=== PATIENT | female | born 1955 | race Caucasian/White ===

== ENCOUNTER 2019-08-21 20:08 | Inpatient (IN) | payer BC ==
[~2019-08-21] VITALS: Ht 167.6 cm; Wt 84.6 kg
[2019-08-21 20:15] VITALS: BP_SYST 123
--- NOTE | 2019-08-21 20:34 | NUR ---
Patient to ER bed 5 to gown for evaluation. Side rails up. Report given to ANTONY TODD.
--- NOTE | 2019-08-21 20:55 | NUR ---
DR KEMP IN TO ASSESS. PT CALM AND COOPERATIVE
[2019-08-21] MEDS ORDERED: NACL 0.9% 1,000 ML IV ONE (21:00)
[2019-08-21] MEDS ORDERED: MORPHINE 2 MG/ML INJ. SYRINGE IVP ONE (21:00)
[2019-08-21] MEDS ORDERED: ONDANSETRON HCL 4 MG/2 ML VIAL IVP ONE (21:00)
[2019-08-21 21:11] LABS: BASOPHILS # (AUTO) 0.1 K/uL (0.0-0.2); BASOPHILS % (AUTO) 0.6 % (0.0-2.0); EOSINOPHILS # (AUTO) 0.1 K/uL (0.0-0.4); EOSINOPHILS % (AUTO) 0.6 % (0.0-4.0); HEMATOCRIT 44.3 % (36-48); HEMOGLOBIN 14.7 g/dL (12.0-16.0); LYMPHOCYTES # (AUTO) 1.3 K/uL (1.0-5.5); LYMPHOCYTES % (AUTO) 9.3 % (20.5-51.5); MEAN CORPUSCULAR HEMOGLOBIN 29 pg (27-31); MEAN CORPUSCULAR HGB CONC 33 % (32-36); MEAN CORPUSCULAR VOLUME 87 fL (79.0-98.0); MONOCYTES # (AUTO) 0.5 K/uL (0.0-1.0); MONOCYTES % (AUTO) 3.9 % (1.7-9.3); NEUTROPHILS # (AUTO) 11.9 K/uL (1.8-7.7); NEUTROPHILS % (AUTO) 85.6 % (40.0-70.0); PLATELET COUNT (AUTO) 387 K/uL (130-430); RED BLOOD CELL COUNT(AUTO) 5.09 MIL/uL (4.2-6.2); RED CELL DISTRIBUTION WIDTH 14.7 % (9.0-15.0); WHITE BLOOD COUNT (AUTO) 13.9 K/uL (4.8-10.8)
[2019-08-21 21:15] LABS: CALCIUM 9.2 mg/dL (8.4-11.0); CREATININE 1.11 mg/dL (0.55-1.30); POTASSIUM 4.4 mmol/L (3.5-5.1)
--- NOTE | 2019-08-21 21:15 | NUR ---
ALERT, CALM, RESP UNLABORED, SKIN WARM AND DRY. COMMUNICATES CLEARLY. HERE FOR 2 HOURS OF SHARP CONSTANT RUQ ABD PAIN/DENIES N,V,D. SUDDEN ONSET. DENIES CP/SOB,
[2019-08-21 21:20] LABS: TOTAL BILIRUBIN 0.3 mg/dL (0.0-1.0)
--- NOTE | 2019-08-21 21:30 | NUR ---
EXPRESSED SOME RELIEF WITH MEDICATION, RESP UNLABORED, NAD.
[2019-08-21] MEDS ORDERED: fentaNYL CITRATE/PF 100 MCG/2 ML AMP IVP ONE (22:15)
--- NOTE | 2019-08-21 22:24 | NUR ---
ULTRASOUND IN PROGRESS
--- NOTE | 2019-08-21 22:39 | NUR ---
UP AMBULATING STEADY, NO DYSPNEA
--- NOTE | 2019-08-22 00:05 | NUR ---
Pt is resting comfortably in bed, no acute distress noted at this time. Will continue to monitor.
--- NOTE | 2019-08-22 00:14 | NUR ---
Patient transported to radiology via gurney, accompanied by rad staff.
--- NOTE | 2019-08-22 00:21 | NUR ---
Pt returned in stable condition.
--- NOTE | 2019-08-22 00:24 | NUR ---
Pt C/O of increasing pain after returning from radiology. MD notified.
[2019-08-22] MEDS ORDERED: KETOROLAC TROMETHAMINE 30 MG VIAL IVP ONE (00:30)
[2019-08-22] MEDS ORDERED: MORPHINE 2 MG/ML INJ. SYRINGE IVP ONE ×2 (01:00→02:30)
[2019-08-22] MEDS ORDERED: [UNRECOGNIZED DRUG - OTHER] IV (01:26)
[2019-08-22] MEDS ORDERED: METF750T PO (01:26)
[2019-08-22] MEDS ORDERED: PREG75CA PO (01:26)
[2019-08-22] MEDS ORDERED: [UNRECOGNIZED DRUG - OTHER] (01:26)
[2019-08-22] MEDS ORDERED: ROSU20TA2 PO (01:26)
[2019-08-22] MEDS ORDERED: TOPIRAMATE (01:26)
[2019-08-22] MEDS ORDERED: ONDANSETRON HCL 4 MG/2 ML VIAL IVP PRN (01:30)
[2019-08-22] MEDS ORDERED: MORPHINE 2 MG/ML INJ. SYRINGE IVP PRN (01:30)
[2019-08-22] MEDS: NACL 0.9% 1,000 ML IV SCH ×3 (01:30→16:27)
--- NOTE | 2019-08-22 01:33 | NUR ---
Medication reconciliation completed with information provided by patient. Any prior medication reconciliation on file was reviewed and corrected.
--- NOTE | 2019-08-22 02:00 | NUR ---
Patient will be admitted to care of Dr. Overton. Admitted to Med Surg unit. Will go to room 102B. Belongings list completed. Complete and up to date summary report printed. SBAR report to be given at bedside with opportunity for questions.
--- NOTE | 2019-08-22 02:40 | NUR ---
Has been given 2mg of Morphine prior to transfer to the floor
--- NOTE | 2019-08-22 02:45 | NUR ---
ADMISSION NOTE Received patient from ER via french, received report from PEREZ QUEVEDO. Patient admitted with diagnosis of RENAL COLIC. Patient oriented to hospital routine, call light, toileting and safety-patient verbalized understanding.
[2019-08-22 02:47] VITALS: BP_SYST 150
--- NOTE | 2019-08-22 02:49 | NUR ---
[facility]. Will continue to monitor.
--- NOTE | 2019-08-22 02:51 | NUR ---
Nephro Consultation Paged REASON FOR CONSULTATION: Renal Colic WAS CONSULT CALLED? Yes PERSON WHO WAS NOTIFIED: Germaine CONSULTING PHYSICIAN: Dr Mesa; John Dodd is on-call. [employer] SPECIALTY: Nephrology [employer] PHONE NUMBER: REQUESTING PHYSICIAN: Dr Overton
[2019-08-22] MEDS ORDERED: TOP25 PO (03:08)
[2019-08-22] MEDS ORDERED: MILN100T PO (03:08)
--- NOTE | 2019-08-22 03:15 | NUR ---
ADMISSION PHYSICAL ASSESSMENT NOTES; took over care from admitting nurse Drew. pt. awake, alert and oriented. instructed on use of call light for help and bed. on room air, still noted pain on her flank and abdomen. IV site on rt. antecubital, will start IVF. moves all extremities. no edema. kept NPO for now as ordered. no nausea nor vomiting.
[2019-08-22] MEDS: MORPHINE 4 MG/ML INJ. SYRINGE IVP PRN ×2 (05:06→09:47)
--- NOTE | 2019-08-22 05:10 | NUR ---
NOTES: pt. remains awake. medicated with IV Morphine for c/o rt. sided abdominal/flank pain. repositioned self. kept NPO. IVF continuous. call light within reach.
--- NOTE | 2019-08-22 06:25 | NUR ---
CLOSING NOTES; pt. still asleep, noted relief from pain. IVF continuous. kept NPO. urollogy consult with Dr. Rudi Mesa this am. call light within reach. for further care and assistance.
--- NOTE | 2019-08-22 07:15 | NUR ---
OPENING NOTES PT AWAKE, ALERT, AND ORIENTED. NONLABORED BREATHING NOTED ON ROOM AIR, O2 AT 96%. PT DENIES PAIN AND SOB AT THIS TIME. IV LINE INTACT AND PATENT, NO SIGNS OF INFILTRATION NOTED. NO ACUTE DISTRESS NOTED. BED LOCKED AND IN LOWEST POSITION. ALL NEEDS MET. CALL LIGHT IN REACH. FALL AND ASPIRATION PRECAUTIONS IN PLACE. CONTINUE TO MONITOR.
[2019-08-22 08:00] VITALS: BP_SYST 128
[2019-08-22] MEDS ORDERED: cefTRIAXone 1 GM VIAL IM SCH (09:00)
[2019-08-22] MEDS ORDERED: cefTRIAXone 1 GM VIAL IV SCH (09:00)
[2019-08-22] MEDS: CEFTRIAXONE SOD 1 GM/ D5W 50 ML IV SCH ×2 (09:45)
--- NOTE | 2019-08-22 09:50 | NUR ---
PT C/O OF FLANK PAIN, ADMINISTERED PAIN MEDS ORDERED. WILL MONITOR.
[2019-08-22] MEDS ORDERED: DEXTROSE 50% JECT 50 ML DISP.SYRIN IVP PRN (10:15)
[2019-08-22 11:30] LABS: INR 0.9 (0.8-1.2); PROTHROMBIN TIME 9.5 SECS (9.5-12.5)
[2019-08-22 12:00] VITALS: BP_SYST 144
--- NOTE | 2019-08-22 12:32 | NUR ---
Paged Dr. Overton for anxiety medication.
[2019-08-22] MEDS ORDERED: LORazepam 2 MG/ML VIAL IVP PRN (12:45)
[2019-08-22] MEDS: HYDROmorphone 2 MG/ML VIAL IVP PRN (13:17)
--- NOTE | 2019-08-22 13:17 | NUR ---
PT C/O OF FLANK PAIN, ADMINISTERED PAIN MEDS ORDERED. CONTINUE TO MONITOR.
[2019-08-22] MEDS ORDERED: IOHEXOL 0 ML IV ONE (14:19)
[2019-08-22 15:37] LABS: BILIRUBIN,URINE NEGATIVE (NEGATIVE); BLOOD, URINE 3+ (NEGATIVE); CLARITY/URINE CLOUDY (CLEAR); GLUCOSE,URINE NEGATIVE (NEGATIVE); KETONES,URINE NEGATIVE (NEGATIVE); LEUKOCYTE ESTERASE ,URINE TRACE (NEGATIVE); NITRITE, URINE NEGATIVE (NEGATIVE); PROTEIN URINE 1+ (NEGATIVE); UROBILINOGEN,URINE 0.2 (0.2-1.0)
--- NOTE | 2019-08-22 16:17 | NUR ---
PT TAKEN OFF FLOOR TO O.R.
[2019-08-22 16:22] LABS: COLOR,URINE AMBER (YELLOW)
[2019-08-22 16:27] LABS: BACTERIA,URINE FEW /HPF (None Seen); RBC,URINE >100 /HPF (0-3)
[2019-08-22 16:28] LABS: MUCUS,URINE None Seen /LPF (None Seen)
[2019-08-22] MEDS ORDERED: LR 1,000 ML IV SCH ×3 (17:37)
[2019-08-22] MEDS ORDERED: NS IRRIG SOLN 1000 ML IR ONE (17:41)
[2019-08-22] MEDS ORDERED: SUCCINYLCHOLINE CHLORIDE 20 MG/ML(QUELICIN) ONE (17:41)
[2019-08-22] MEDS ORDERED: KETOROLAC TROMETHAMINE 30 MG VIAL ONE (17:41)
[2019-08-22] MEDS ORDERED: NS 1000 ML IV.SOLN IV ONE (17:41)
[2019-08-22] MEDS ORDERED: HYDROmorphone 2 MG/ML VIAL ONE (17:41)
[2019-08-22] MEDS ORDERED: ONDANSETRON HCL 4 MG/2 ML VIAL ONE (17:41)
[2019-08-22] MEDS ORDERED: SEVOFLURANE 15 MIN GAS INH ONE (17:41)
[2019-08-22] MEDS ORDERED: MIDAZOLAM HCL 5 MG/ML VIAL (VERSED) IV ONE (17:41)
[2019-08-22] MEDS ORDERED: METOCLOPRAMIDE HCL 10 MG/2 ML VIAL ONE (17:41)
[2019-08-22] MEDS ORDERED: MIDAZOLAM HCL 5 MG/5 ML VIAL IVP PRN (17:45)
[2019-08-22] MEDS ORDERED: HYDROmorphone 1 MG INJ. 1 MG/ML AMPUL IVP PRN ×3 (17:45)
[2019-08-22] MEDS ORDERED: HYDROmorphone 2 MG/ML VIAL IVP PRN ×6 (17:45)
[2019-08-22] MEDS ORDERED: ePHEDrine sulfate 50 MG/ML VIAL IVP PRN ×2 (17:45)
[2019-08-22] MEDS ORDERED: DILTIAZEM HCL 25 MG/5 ML VIAL IVP PRN (17:45)
[2019-08-22] MEDS ORDERED: NALOXONE HCL 0.4 MG/ML AMP (NARCAN) IVP PRN ×2 (17:45)
--- NOTE | 2019-08-22 18:27 | NUR ---
PT RETURNED FROM O.R. PT STABLE. CONTINUE TO MONITOR.
[2019-08-22] MEDS: INSULIN REGULAR, HUMAN 100 UNITS/ML, 10 ML VIAL (humuLIN R) SUBCUT PRN (18:54)
--- NOTE | 2019-08-22 18:54 | NUR ---
ACCUCHECK ACCUCHECK DONE, ADMINISTERED INSULIN PER SLIDING SCALE. GAVE FOOD ORDERED AT BEDSIDE. PT EATING FOOD, TOLERATING WELL. CONTINUE TO MONITOR.
--- NOTE | 2019-08-22 19:00 | NUR ---
CLOSING NOTES PT AWAKE, ALERT, AND ORIENTED. NONLABORED BREATHING NOTED ON ROOM AIR. PT DENIES PAIN AND SOB AT THIS TIME. IV LINE INTACT AND PATENT, NO SIGNS OF INFILTRATION NOTED, RECEIVING FLUIDS. NO ACUTE DISTRESS NOTED. ALL NEEDS MET. CALL LIGHT IN REACH. FALL AND ASPIRATION PRECAUTIONS IN PLACE. ENDORSE CARE TO NOC NURSE.
--- NOTE | 2019-08-22 19:30 | NUR ---
CHANGE OF SHIFT; pt. awake, alert, eating her sandwich and jello, no nausea nor vomiting. S/P rt. ureteral stent placement with cystoscopy. VS monitored. no distress. will assess further later. call light within reach.
[2019-08-22 20:00] VITALS: BP_SYST 128
[2019-08-22] MEDS: TOPIRAMATE 25 MG TABLET(TOPAMAX) PO SCH (20:13)
--- NOTE | 2019-08-22 20:32 | NUR ---
PAGED PAGED DOCTOR YOGESH
--- NOTE | 2019-08-22 20:45 | NUR ---
NOTES: returned the call, informed him that pt. does not want Lipitor, pt. takes Crestor instead and she needs to take her Savella tonight, ok to take her own home medications. pt. will call her to bring it.
[2019-08-22] MEDS ORDERED: ATORVASTATIN 20 MG TABLET PO SCH ×2 (21:00)
[2019-08-22] MEDS ORDERED: PREGABALIN 75 MG CAPSULE (LYRICA) PO SCH (21:00)
--- NOTE | 2019-08-22 21:00 | NUR ---
NOTES: spoke to pharmacist about medication, pending and will verify tomorrow.
[2019-08-22 23:49] VITALS: BP_SYST 110
--- NOTE | 2019-08-23 00:20 | NUR ---
NOTES: pt. ambulated to the restroom, stand by assist. noted some pressure and voided with some blood. medicated for pain with IV Dilaudid. checked BS 118, no sliding scale coverage.
[2019-08-23] MEDS: NACL 0.9% 1,000 ML IV SCH ×3 (02:48→16:46)
[2019-08-23] MEDS: HYDROmorphone 2 MG/ML VIAL IVP PRN ×6 (02:50→21:13)
--- NOTE | 2019-08-23 03:00 | NUR ---
NOTES: pt. awake, starting to hurt again, not time yet for pain med, encouraged to drink more fluid. IVF continuous.
--- NOTE | 2019-08-23 04:41 | NUR ---
NOTES: pt. medicated with IV Dilaudid for c/o rt. abdominal/flank pain and pressure. repositioned self for comfort. pt. been drinking lots of water.
--- NOTE | 2019-08-23 05:10 | NUR ---
NOTES: pt. awakened for am blood draw. pt. needs attended. noted relief from pain.
[2019-08-23 06:16] LABS: BASOPHILS # (AUTO) 0.1 K/uL (0.0-0.2); BASOPHILS % (AUTO) 0.4 % (0.0-2.0); EOSINOPHILS # (AUTO) 0.1 K/uL (0.0-0.4); EOSINOPHILS % (AUTO) 0.9 % (0.0-4.0); HEMATOCRIT 39.3 % (36-48); HEMOGLOBIN 12.7 g/dL (12.0-16.0); LYMPHOCYTES # (AUTO) 2.1 K/uL (1.0-5.5); LYMPHOCYTES % (AUTO) 19.1 % (20.5-51.5); MEAN CORPUSCULAR HEMOGLOBIN 28 pg (27-31); MEAN CORPUSCULAR HGB CONC 32 % (32-36); MEAN CORPUSCULAR VOLUME 88 fL (79.0-98.0); MONOCYTES # (AUTO) 0.9 K/uL (0.0-1.0); MONOCYTES % (AUTO) 7.6 % (1.7-9.3); NEUTROPHILS # (AUTO) 8.1 K/uL (1.8-7.7); PLATELET COUNT (AUTO) 319 K/uL (130-430); RED BLOOD CELL COUNT(AUTO) 4.48 MIL/uL (4.2-6.2); RED CELL DISTRIBUTION WIDTH 14.6 % (9.0-15.0); WHITE BLOOD COUNT (AUTO) 11.2 K/uL (4.8-10.8)
[2019-08-23 06:34] LABS: CALCIUM 7.9 mg/dL (8.4-11.0); CREATININE 0.73 mg/dL (0.55-1.30); PHOSPHORUS 3.4 mg/dL (2.7-4.5)
--- NOTE | 2019-08-23 06:56 | NUR ---
CLOSING NOTES; pt. already awake, checked BS 94, no sliding scale. no distress. slight discomfort but not time for pain medication. IVF continuous. for further care and assistance. call light within reach. will endorse to day shift. pt. ambulating, did not use sequentials.
--- NOTE | 2019-08-23 07:15 | NUR ---
OPENING NOTES PT AWAKE, ALERT, AND ORIENTED. NONLABORED BREATHING NOTED ON ROOM AIR, O2 AT 94%. PT DENIES PAIN AND SOB AT THIS TIME. IV LINE INTACT AND PATENT, NO SIGNS OF INFILTRATION NOTED, FLUIDS RUNNING ORDERED. NO ACUTE DISTRESS NOTED. BED LOCKED AND IN LOWEST POSITION. ALL NEEDS MET. CALL LIGHT IN REACH. FALL AND ASPIRATION PRECAUTIONS IN PLACE. CONTINUE TO MONITOR.
[2019-08-23 08:09] VITALS: BP_SYST 141
[2019-08-23] MEDS: TOPIRAMATE 25 MG TABLET(TOPAMAX) PO SCH ×2 (08:31→20:57)
[2019-08-23] MEDS: CEFTRIAXONE SOD 1 GM/ D5W 50 ML IV SCH ×2 (08:31)
--- NOTE | 2019-08-23 08:44 | NUR ---
PRN PAIN MEDS AND ROUTINE MEDS ROUTINE MEDS ADMINISTERED ORDERED PER MD. PT C/O PAIN, ADMINISTERED PRN PAIN MEDS ORDERED. EDUCATION GIVEN, TOLERATED WELL. NO ACUTE DISTRESS NOTED. ALL NEEDS MET. CALL LIGHT IN REACH. CONTINUE TO MONITOR.
[2019-08-23] MEDS ORDERED: COMMUNICATION ORDER XX SCH (09:00)
[2019-08-23] MEDS: SAVELLA 100 MG PO SCH ×2 (09:19→20:58)
--- NOTE | 2019-08-23 10:00 | NUR ---
SEEN BY DR. ZUÑIGA AT BEDSIDE.
[2019-08-23] MEDS ORDERED: TAMS-11 PO (10:17)
[2019-08-23] MEDS ORDERED: LEVO500T89 PO (10:17)
--- NOTE | 2019-08-23 10:59 | NUR ---
SPOKE TO NORBERTO CHILDRESS TO D/C. FOLLOW UP WITHIN ONE WEEK. WILL VERBALIZE TO PT.
[2019-08-23 11:18] VITALS: BP_SYST 121
--- NOTE | 2019-08-23 12:57 | NUR ---
PT C/O PAIN. ADMINISTERED PAIN MEDS ORDERED PER MD. CONTINUE TO MONITOR.
--- NOTE | 2019-08-23 14:00 | NUR ---
ASSISTED PT TO BATHROOM AND BACK TO BED. TOLERATED WELL. CONTINUE TO MONITOR.
--- NOTE | 2019-08-23 15:54 | NUR ---
SPOKE TO DR. ZUÑIGA REGARDING PT'S CONCERN OF D/C. RECEIVED ORDERS, VERIFIED, AND CARRIED OUT.
[2019-08-23 16:16] VITALS: BP_SYST 138
--- NOTE | 2019-08-23 17:02 | NUR ---
PT C/O PAIN AND ACCUCHECK DONE PT C/O PAIN AND ADMINISTERED PAIN MEDS ORDERED PER MD, TOLERATED WELL. ACCCUHECK DONE AND NO INSULIN COVERAGE NEEDED PER SLIDING SCALE. CONTINUE TO MONITOR.
--- NOTE | 2019-08-23 18:20 | NUR ---
CLOSING NOTES PT AWAKE, ALERT, AND ORIENTED. PT SITTING UP IN BED WATCHING TV. NONLABORED BREATHING NOTED ON ROOM. PT DENIES PAIN AND SOB AT THIS TIME. IV LINE INTACT AND PATENT, NO SIGNS OF INFILTRATION NOTED, FLUIDS RUNNING ORDERED. NO ACUTE DISTRESS NOTED. BED LOCKED AND IN LOWEST POSITION. ALL NEEDS MET. CALL LIGHT IN REACH. FALL AND ASPIRATION PRECAUTIONS IN PLACE. WILL ENDORSE TO NOC NURSE.
--- NOTE | 2019-08-23 19:30 | NUR ---
OPENING NOTES RECEIVED SBAR REPORT FROM DAY SHIFT RN. PT RESTING IN BED. PT REPORTING SEVERE RIGHT FLANK PAIN. BREATHING EVEN AND UNLABORED TO ROOM AIR. IVF RUNNING ORDERED RATE. BED LOCKED IN LOW. CALL LIGHT WITHIN REACH. SAFETY PRECAUTIONS IN PLACE. WILL CONTINUE TO MONITOR.
[2019-08-23 20:00] VITALS: BP_SYST 124
[2019-08-23] MEDS: CRESTOR 10 MG PO SCH (20:57)
--- NOTE | 2019-08-23 21:05 | NUR ---
SPOKE TO DR. ZUÑIGA SPOKE TO DR. ZUÑIGA REGARDING PT PAIN MEDICATION. NEW ORDER RECEIVED. WILL CARRY OUT.
[2019-08-23] MEDS: PREGABALIN 75 MG CAPSULE (LYRICA) PO SCH (21:19)
--- NOTE | 2019-08-23 21:19 | NUR ---
MEDICATION PASS SCHEDULED MEDICATIONS ADMINISTERED ORDERED. DISCUSSED MEDICATION ACTIONS AND POTENTIAL SIDE EFFECTS. PT VERBALIZED UNDERSTANDING. BREATHING UNLABORED TO ROOM AIR. CALL LIGHT WITHIN REACH. PAIN CONTROLLED AT THIS TIME. SAFETY PRECAUTIONS IN PLACE. WILL CONTINUE TO MONITOR.
[2019-08-23] MEDS ORDERED: PREGABALIN 25 MG CAPSULE (LYRICA) ONE (21:53)
[2019-08-23] MEDS: PREGABALIN 25 MG CAPSULE (LYRICA) PO SCH (22:16)
--- NOTE | 2019-08-24 00:15 | NUR ---
ACCU-CHECK BLOOD SUGAR OF 119. NO INSULIN COVERAGE PER SLIDING AT THIS TIME. BREATHING EVEN AND UNLABORED TO ROOM AIR. BED LOCKED IN LOW. SIDE RAILS X2. CALL LIGHT WITHIN REACH. SAFETY PRECAUTIONS MAINTAINED. WILL MONITOR.
[2019-08-24] MEDS: NACL 0.9% 1,000 ML IV SCH ×3 (00:16→17:55)
[2019-08-24] MEDS: HYDROmorphone 2 MG/ML VIAL IVP PRN ×7 (00:17→22:01)
[2019-08-24 00:30] VITALS: BP_SYST 129
--- NOTE | 2019-08-24 02:35 | NUR ---
RN ROUNDS PT RESTING IN BED, FALL ASLEEP. ABLE TO SEE RISE AND FALL RESPIRATIONS. BREATHING EASY. IVF RUNNING ORDERED RATE. CALL LIGHT WITHIN REACH. SAFETY PRECAUTIONS IN PLACE. WILL CONTINUE TO MONITOR.
--- NOTE | 2019-08-24 03:57 | NUR ---
DILAUDID/PAIN MEDICATION PT REPORTING RIGHT FLANK PAIN. ADMINISTERED DILAUDID ORDERED PRN. DISCUSSED MEDICATION ACTIONS AND POTENTIAL SIDE EFFECTS. BREATHING EVEN AND UNLABORED TO ROOM AIR. CALL LIGHT WITHIN REACH. SAFETY PRECAUTIONS IN PLACE. WILL CONTINUE TO MONITOR.
--- NOTE | 2019-08-24 06:51 | NUR ---
CLOSING NOTES PT RESTING IN BED. PT REPORTING SEVERE RIGHT FLANK PAIN. BREATHING EVEN AND UNLABORED TO ROOM AIR. IVF RUNNING ORDERED RATE. BED LOCKED IN LOW. CALL LIGHT WITHIN REACH. SAFETY PRECAUTIONS IN PLACE. WILL CONTINUE TO MONITOR UNTIL ENDORSE TO DAY SHIFT RN.
--- NOTE | 2019-08-24 07:45 | NUR ---
Opening note Pt A/O x 4. Complaints of R Flank pain. Previous RN administered Dilaudid. Will continue to monitor for pain. On room air. Pt able to ambulate with BRP. NS @ 125cc/hr. Note slight redness around insertion site and resistance during flush but still patent. Bed locked and in lowest position with call light in place.
[2019-08-24 08:00] VITALS: BP_SYST 155
[2019-08-24] MEDS: TOPIRAMATE 25 MG TABLET(TOPAMAX) PO SCH ×2 (08:48→21:00)
[2019-08-24] MEDS: CEFTRIAXONE SOD 1 GM/ D5W 50 ML IV SCH ×2 (08:48)
[2019-08-24] MEDS: SAVELLA 100 MG PO SCH ×2 (08:48→21:07)
--- NOTE | 2019-08-24 10:30 | NUR ---
Administered Dilaudid pain 11/19. Will continue to monitor.
--- NOTE | 2019-08-24 11:00 | NUR ---
Helped ambulate pt to restroom. Noted dark ana maria urine with foul odor. No signs of stones visible in hat. Assisted pt back to bed with no incidence.
[2019-08-24] MEDS: INSULIN REGULAR, HUMAN 100 UNITS/ML, 10 ML VIAL (humuLIN R) SUBCUT PRN (12:10)
[2019-08-24] MEDS ORDERED: BISACODYL 5 MG TABLET.DR (DULCOLAX) PO ONE (13:15)
[2019-08-24] MEDS ORDERED: MAGNESIUM CITRATE 300 ML ORAL SOLUTION PO ONE (13:15)
--- NOTE | 2019-08-24 15:00 | NUR ---
Administered Dilaudid for pain 8/10 right and midline pain. Will continue to monitor.
--- NOTE | 2019-08-24 15:30 | NUR ---
IV RE-INSERTION: Complaining of pain to IV site. DC'd R.hand #20. Intact catheter, no signs of trauma or infection. Restarted on #22 RFA. Successful after 1 attempt. Resumed current IVF of NS 125cc/hr. Will observe for any signs of infiltration.
--- NOTE | 2019-08-24 18:57 | NUR ---
Pt A/O x 4. Complaints of R Flank pain. Administered Dilaudid @ 1730, effective. Will continue to monitor for pain. On room air. Pt able to ambulate with BRP. NS @ 125cc/hr. Bed locked and in lowest position with call light in place. Endorsement to night will be given.
[2019-08-24 20:00] VITALS: BP_SYST 145
--- NOTE | 2019-08-24 20:00 | NUR ---
AAOX4. IN NO APPARENT DISTRESS. DENIES ACUTE PAIN. ON ROOM AIR. POX 96%. BREATH SOUNDS ESSENTIALLY CLEAR. BOWEL SOUNDS (+). PULSES PALPABLE. SKIN W/D. COLOR SATISFACTORY. HOB UP TO COMFORT. SIDE RAILS UP X2.
[2019-08-24] MEDS: PREGABALIN 75 MG CAPSULE (LYRICA) PO SCH (20:59)
[2019-08-24] MEDS: PREGABALIN 25 MG CAPSULE (LYRICA) PO SCH (21:00)
--- NOTE | 2019-08-24 21:00 | NUR ---
UNABLE TO HOLD URINE, URINATED WHILE AMBULATING TO BATHROOM.
[2019-08-24] MEDS: CRESTOR 10 MG PO SCH (21:09)
--- NOTE | 2019-08-24 22:00 | NUR ---
DILAUDID 2 MG IVP GIVEN FOR COMPLAINT OF RIGHT FLANK PAIN.
--- NOTE | 2019-08-25 | NUR ---
ACCU-CHEK 105, NO INSULIN DUE PER SLIDING SCALE COV. INCONTINENT OF URINE. PEPPER-CARE GIVEN. PARTIAL LINEN CHANGE DONE. ASSISTS WITH TURNING.
[2019-08-25] MEDS: INSULIN REGULAR, HUMAN 100 UNITS/ML, 10 ML VIAL (humuLIN R) SUBCUT PRN (00:07)
[2019-08-25 00:24] VITALS: BP_SYST 145
[2019-08-25] MEDS: NACL 0.9% 1,000 ML IV SCH ×2 (02:19→12:32)
--- NOTE | 2019-08-25 03:00 | NUR ---
USES BSC TO URINATE. SELF PEPPER-CARE.
--- NOTE | 2019-08-25 05:00 | NUR ---
DILAUDID 2 MG IVP GIVEN FOR RIGHT FLANK PAIN.
[2019-08-25] MEDS: HYDROmorphone 2 MG/ML VIAL IVP PRN ×5 (05:09→21:24)
--- NOTE | 2019-08-25 06:00 | NUR ---
ACCU-CHEK 97, NO INSULIN DUE PER SLIDING SCALE COV. CONVERSANT. STATES SHE HASN'T MOVED HER BOWELS YET. REMAINS IN GUARDED CONDITION.
[2019-08-25 07:50] VITALS: BP_SYST 146
--- NOTE | 2019-08-25 08:00 | NUR ---
am notes received pt in bed.a/cx4. c/o of left side pain 10/19. will medicate as needed with prn pain med.res even and unlabored. kept comfortable. safety and fall precutions in place.call light within reach. ivf infusing well no s/s of infiltration noted. . will continue to monitor
[2019-08-25] MEDS: TOPIRAMATE 25 MG TABLET(TOPAMAX) PO SCH ×2 (08:35→21:16)
[2019-08-25] MEDS: CEFTRIAXONE SOD 1 GM/ D5W 50 ML IV SCH ×2 (08:35)
[2019-08-25] MEDS: SAVELLA 100 MG PO SCH ×2 (08:45→21:19)
[2019-08-25] MEDS ORDERED: MAGNESIUM CITRATE 300 ML ORAL SOLUTION PO ONE (09:45)
[2019-08-25] MEDS ORDERED: MINERAL OIL 30 ML UDC PO ONE (09:45)
[2019-08-25 11:42] VITALS: BP_SYST 151
--- NOTE | 2019-08-25 12:32 | NUR ---
C/O OF PAIN PT C/O OF PAIN IN RT SIDE BACK. MEDICATED WITH DILAUDID 2 MG IVP ORDERED. NOT IN ACUTE DISTRESS. VITALS STABLE. WILL CONTINUE TO MONITOR
--- NOTE | 2019-08-25 14:00 | NUR ---
ROUNDS PT STABLE NOT IN ACUTE DISTRESS. PT HAD BMX2.NEEDS ATTENDED. PT USING BEDSIDE COMMODE. IVFINFUSING WELL.
[2019-08-25 16:54] VITALS: BP_SYST 153
--- NOTE | 2019-08-25 19:00 | NUR ---
CLOSING NOTES PT STABLE NOT IN ACUTE DISTRESS. RESTING COMFORTABLY.SAFETY AND FALL PRECAUTIONS IN PLACE. REPORT GIVEN TO NIGHT RN
[2019-08-25 19:41] VITALS: BP_SYST 139
--- NOTE | 2019-08-25 19:41 | NUR ---
INITIAL NOTES PATIENT IS STABLE AND LAYING IN BED. NO S/S OF RESPIRATORY DISTRESS NOTED. CALL LIGHT IN REACH. PATIENT SUCCESSFULLY DEMONSTRATES USAGE OF CALL LIGHT. BED IS LOCKED AND AT THE LOWEST POSITION. PLAN OF CARE IS DISCUSSED WITH PATIENT.FALL, SAFETY, ASPIRATION, AND RESPIRATORY PRECAUTIONS WILL BE IN PLACE THROUGHOUT THE SHIFT.
[2019-08-25] MEDS: MINERAL OIL 30 ML UDC PO SCH (21:17)
[2019-08-25] MEDS: PREGABALIN 75 MG CAPSULE (LYRICA) PO SCH (21:17)
[2019-08-25] MEDS: PREGABALIN 25 MG CAPSULE (LYRICA) PO SCH (21:17)
[2019-08-25] MEDS: CRESTOR 10 MG PO SCH (21:18)
--- NOTE | 2019-08-25 21:35 | NUR ---
PATIENT IS STABLE AND LAYING IN BED. NO S/S OF RESPIRATORY DISTRESS NOTED. CALL LIGHT IN REACH.
--- NOTE | 2019-08-25 23:35 | NUR ---
PATIENT IS STABLE AND LAYING IN BED. NO S/S OF RESPIRATORY DISTRESS NOTED. CALL LIGHT IN REACH.
[2019-08-26 00:04] VITALS: BP_SYST 147
[2019-08-26] MEDS: NACL 0.9% 1,000 ML IV SCH ×3 (00:13→11:17)
[2019-08-26] MEDS: HYDROmorphone 2 MG/ML VIAL IVP PRN ×2 (00:32→07:51)
--- NOTE | 2019-08-26 01:35 | NUR ---
PATIENT IS SLEEPING IN BED. PATIENT IS STABLE. NO S/S OF RESPIRATORY DISTRESS NOTED. CALL LIGHT IN REACH.
--- NOTE | 2019-08-26 04:16 | NUR ---
PATIENT IS STABLE AND SLEEPING IN BED. NO S/S OF RESPIRATORY DISTRESS NOTED. CALL LIGHT IN REACH.
--- NOTE | 2019-08-26 07:30 | NUR ---
CLOSING NOTES PATIENT IS STABLE AND LAYING IN BED. NO S/S OF RESPIRATORY DISTRESS NOTED. CALL LIGHT IN REACH. BED IS LOCKED AND AT THE LOWEST POSITION. FALL, SAFETY, ASPIRATION, AND RESPIRATORY PRECAUTIONS HAS BEEN IN PLACE THROUGHOUT THE SHIFT. PLAN OF CARE ENDORSED TO AM NURSE BY BEDSIDE.
[2019-08-26 08:00] VITALS: BP_SYST 144
--- NOTE | 2019-08-26 08:00 | NUR ---
Note Pt sitting up in bed eating her breakfast. Denies any SOB/resp distress at this time. Pt was given pain medication IVP at this time for severe abdominal pain. IV in right forearm intact and patent infusing IVF's well. No needs noted at this time. BSC within reach at this time. Call light within reach.
[2019-08-26] MEDS: TOPIRAMATE 25 MG TABLET(TOPAMAX) PO SCH ×2 (08:59→20:27)
[2019-08-26] MEDS: SAVELLA 100 MG PO SCH ×2 (09:00→20:27)
[2019-08-26] MEDS: CEFTRIAXONE SOD 1 GM/ D5W 50 ML IV SCH ×2 (09:00)
[2019-08-26] MEDS: MINERAL OIL 30 ML UDC PO SCH ×2 (09:00→20:27)
[2019-08-26 09:57] VITALS: BP_SYST 144
--- NOTE | 2019-08-26 10:11 | NUR ---
Nutrition Update Ronald Scale 17 noted. Pt admitted for large right renal colic. Diet: [facility] BMI: 30.1 kg/m2 RD to follow per nutrition care standards.
--- NOTE | 2019-08-26 10:55 | NUR ---
Case mgt: Reviewed case for dc planning--pt c/o severe abd pain, but eating 75% diet this am and requesting IV Dilaudid every 3 hrs--had 8 stools per nurse Briana/documentation. Briana will d/w Dr. Overton about transitioning to PO pain meds when he assesses pt today-- RN
[2019-08-26] MEDS ORDERED: TAMSULOSIN HCL 0.4 MG CAP PO ONE (11:00)
[2019-08-26] MEDS: KETOROLAC TROMETHAMINE 15 MG VIAL IVP PRN ×3 (11:12→23:54)
--- NOTE | 2019-08-26 11:45 | NUR ---
Note Dr Miller at pt's bedside and assessing pt at 11am. MD has dc'd Dilaudid 2mg IVP q3' - Pt started on Flomax 0.4mg PO BID and Toradol 15mg IVP q6'. Transition to PO pain medications will be done tomorrow. Pt was informed that IVP pain medications will be tapered down today and pt will be getting just PO pain medications tomorrow - per MD. Pt denies any needs at this time. Call light within reach.
[2019-08-26] MEDS: PREGABALIN 25 MG CAPSULE (LYRICA) PO SCH ×2 (12:15→18:27)
[2019-08-26 12:30] VITALS: BP_SYST 140
[2019-08-26] MEDS: MAGNESIUM CITRATE 300 ML ORAL SOLUTION PO ONE ×2 (13:27→13:43)
[2019-08-26] MEDS ORDERED: PREGABALIN 25 MG CAPSULE (LYRICA) ONE (13:58)
--- NOTE | 2019-08-26 14:30 | NUR ---
Note Pt states pain is tolerable at this time. Pt uses BSC frequently and now sitting on side of bed doing self hygiene care - shower cap on head for hygiene care. Pt denies any needs at this time. Call light within reach.
[2019-08-26] MEDS ORDERED: PREGABALIN 25 MG CAPSULE (LYRICA) PO SCH (15:00)
--- NOTE | 2019-08-26 15:55 | NUR ---
Note Pt requested IVF's be saline locked so pt could ambulate in hallway. Pt's fluids were saline locked and pt ambulated in hallway till room 104 - from room 102B (5 minutes). Pt went back to bed stated she feels her legs are getting edematous and painful at this time. Pt wants to hold IVF's for some time. Call light within reach.
[2019-08-26 17:21] VITALS: BP_SYST 125
--- NOTE | 2019-08-26 18:45 | NUR ---
Note Pt resting in bed at this time. No SOB/resp distress or pain/discomfort noted. Pt was checked on q1' and PRN all shift for needs and care. IV in right hand intact and patent. Pt used BSC all shift. No needs noted at this time. Call light within reach. Pt dose not want IVF's at this time.
[2019-08-26] MEDS: TAMSULOSIN HCL 0.4 MG CAP PO SCH (20:27)
[2019-08-26] MEDS: CRESTOR 10 MG PO SCH (20:27)
[2019-08-26 20:29] VITALS: BP_SYST 134
[2019-08-26] MEDS ORDERED: PREGABALIN 75 MG CAPSULE (LYRICA) PO SCH (21:00)
[2019-08-27 00:54] VITALS: BP_SYST 136
[2019-08-27] MEDS: KETOROLAC TROMETHAMINE 15 MG VIAL IVP PRN ×2 (06:03→13:55)
[2019-08-27 06:27] LABS: BASOPHILS # (AUTO) 0.1 K/uL (0.0-0.2); BASOPHILS % (AUTO) 0.8 % (0.0-2.0); EOSINOPHILS # (AUTO) 0.3 K/uL (0.0-0.4); EOSINOPHILS % (AUTO) 3.7 % (0.0-4.0); HEMATOCRIT 37.5 % (36-48); HEMOGLOBIN 12.5 g/dL (12.0-16.0); LYMPHOCYTES # (AUTO) 2.1 K/uL (1.0-5.5); LYMPHOCYTES % (AUTO) 25.9 % (20.5-51.5); MEAN CORPUSCULAR HEMOGLOBIN 29 pg (27-31); MEAN CORPUSCULAR HGB CONC 33 % (32-36); MEAN CORPUSCULAR VOLUME 87 fL (79.0-98.0); MONOCYTES # (AUTO) 0.7 K/uL (0.0-1.0); MONOCYTES % (AUTO) 9.2 % (1.7-9.3); NEUTROPHILS # (AUTO) 4.9 K/uL (1.8-7.7); NEUTROPHILS % (AUTO) 60.4 % (40.0-70.0); PLATELET COUNT (AUTO) 330 K/uL (130-430); RED BLOOD CELL COUNT(AUTO) 4.33 MIL/uL (4.2-6.2); RED CELL DISTRIBUTION WIDTH 14.4 % (9.0-15.0); WHITE BLOOD COUNT (AUTO) 8.1 K/uL (4.8-10.8)
[2019-08-27 06:46] LABS: CALCIUM 8.5 mg/dL (8.4-11.0); CREATININE 0.73 mg/dL (0.55-1.30); POTASSIUM 3.7 mmol/L (3.5-5.1); TOTAL BILIRUBIN 0.2 mg/dL (0.0-1.0)
--- NOTE | 2019-08-27 07:15 | NUR ---
OPENING NOTES PT AWAKE, ALERT, AND ORIENTED. SITTING UP IN BED. NONLABORED BREATHING NOTED ON ROOM AIR, O2 AT 95%. PT DENIES PAIN AND SOB AT THIS TIME. IV LINE INTACT AND PATENT, NO SIGNS OF INFILTRATION NOTED. PT CLEAN AND DRY. NO ACUTE DISTRESS NOTED. BED LOCKED AND IN LOWEST POSITION. ALL NEEDS MET. CALL LIGHT IN REACH. FALL AND ASPIRATION PRECAUTIONS IN PLACE. CONTINUE TO MONITOR.
[2019-08-27] MEDS: NACL 0.9% 1,000 ML IV SCH (07:21)
[2019-08-27 08:00] VITALS: BP_SYST 148
[2019-08-27] MEDS: PREGABALIN 25 MG CAPSULE (LYRICA) PO SCH (08:19)
[2019-08-27] MEDS: MINERAL OIL 30 ML UDC PO SCH (08:19)
[2019-08-27] MEDS: CEFTRIAXONE SOD 1 GM/ D5W 50 ML IV SCH ×2 (08:19)
[2019-08-27] MEDS: TOPIRAMATE 25 MG TABLET(TOPAMAX) PO SCH (08:20)
[2019-08-27] MEDS: TAMSULOSIN HCL 0.4 MG CAP PO SCH (08:20)
[2019-08-27] MEDS: SAVELLA 100 MG PO SCH (08:20)
--- NOTE | 2019-08-27 08:30 | NUR ---
ROUTINE MEDS ROUTINE MEDS ADMINISTERED ORDERED PER MD, EDUCATION GIVEN, TOLERATED WELL. CONTINUE TO MONITOR.
--- NOTE | 2019-08-27 10:30 | NUR ---
ROUNDS PT AWAKE WATCHING TELEVISION IN BED. PT DENIES PAIN AND SOB AT THIS TIME. NO ACUTE DISTRESS NOTED. CALL LIGHT IN REACH, CONTINUE TO MONITOR.
--- NOTE | 2019-08-27 11:35 | NUR ---
ACCUCHECK ACCUCHECK DONE, NO INSULIN NEEDED PER SLIDING SCALE. CONTINUE TO MONITOR.
--- NOTE | 2019-08-27 12:00 | NUR ---
ROUNDS PT AWAKE AND ALERT. NO ACUTE DISTRESS NOTED. PT DENIES PAIN AT THIS TIME. CONTINUE TO MONITOR.
[2019-08-27 12:32] VITALS: BP_SYST 114
--- NOTE | 2019-08-27 14:00 | NUR ---
PT C/O BODY ACHE. ADMINISTERED PAIN MEDS ORDERED PER MD, EDUCATION GIVEN, TOLERATED WELL. CONTINUE TO MONITOR.
--- NOTE | 2019-08-27 15:20 | NUR ---
SEEN BY DR. SHOOK AT BEDSIDE.
[2019-08-27 15:57] VITALS: BP_SYST 124
[2019-08-27 16:02] VITALS: BP_SYST 119
[2019-08-27] MEDS ORDERED: NON (16:05)
[2019-08-27] MEDS ORDERED: ULTRAM PO (16:07)
[2019-08-27] MEDS ORDERED: BACI1CAP6 PO (16:10)
[2019-08-27] MEDS ORDERED: TAMS-11 PO (16:15)
== END 2019-08-27 16:40 | disposition home or self-care (01) | DRG 661 ==
LOC: SED 20:08 → SMU 08-22 01:27
PROVIDERS: ADMIT Internal Medicine Hospice and Palliative Medicine; ATTEND Internal Medicine Hospice and Palliative Medicine
PROC: BT1D1ZZ Fluoroscopy of Right Kidney, Ureter and Bladder using Low Osmolar Contrast (ICD-10-PCS; 2019-08-22)
PROC: 0T768DZ Dilation of Right Ureter with Intraluminal Device, Via Natural or Artificial Opening Endoscopic (ICD-10-PCS; principal; 2019-08-22 15:00)
DX: N13.2 Hydronephrosis with renal and ureteral calculous obstruction (principal); E11.9 Type 2 diabetes mellitus without complications; Z96.659 Presence of unspecified artificial knee joint; E66.9 Obesity, unspecified; K40.20 Bilateral inguinal hernia, without obstruction or gangrene, not specified as recurrent; K44.9 Diaphragmatic hernia without obstruction or gangrene; K59.00 Constipation, unspecified; M79.7 Fibromyalgia; I10 Essential (primary) hypertension; F32.9 Major depressive disorder, single episode, unspecified; Z87.440 Personal history of urinary (tract) infections; Z90.710 Acquired absence of both cervix and uterus; Z88.1 Allergy status to other antibiotic agents; Z88.8 Allergy status to other drugs, medicaments and biological substances; Z68.30 Body mass index [BMI] 30.0-30.9, adult
CPT/HCPCS: 36415; 71046-TC; 74018; 76000; 76700-TC; 80048; 80053; 81000-TC; 82962; 83690-TC; 83735-TC; 84100-TC; 85025; 85610-TC; 85730-TC; 87086; 93005; 96361; 96374; 96375; 99285; J0330; J0696; J1170; J1815; J1885; J2250; J2270; J2405; J2765; J3010; J7030; J7060; Q9967

== ENCOUNTER 2019-11-04 03:56 | Emergency (ER) | payer BC ==
[~2019-11-04] VITALS: Ht 165.1 cm; Wt 81.6 kg
[~2019-11-04 03:56] MED LIST: BACI1CAP6 PO; LEVO500T89 PO; METF750T PO; MILN100T PO; PREG75CA PO; ROSU20TA2 PO; TAMS-11 PO; TOP25 PO; ULTRAM PO
[2019-11-04 04:00] VITALS: BP_SYST 147
[2019-11-04] MEDS ORDERED: NACL 0.9% 1,000 ML IV ONE (04:30)
[2019-11-04] MEDS ORDERED: MORPHINE 4 MG/ML INJ. SYRINGE IVP ONE (04:30)
[2019-11-04 04:36] LABS: BASOPHILS # (AUTO) 0.1 K/uL (0.0-0.2); BASOPHILS % (AUTO) 0.6 % (0.0-2.0); EOSINOPHILS # (AUTO) 0.2 K/uL (0.0-0.4); EOSINOPHILS % (AUTO) 1.2 % (0.0-4.0); HEMATOCRIT 39.5 % (36-48); HEMOGLOBIN 13.2 g/dL (12.0-16.0); LYMPHOCYTES # (AUTO) 3.5 K/uL (1.0-5.5); LYMPHOCYTES % (AUTO) 27.4 % (20.5-51.5); MEAN CORPUSCULAR HEMOGLOBIN 29 pg (27-31); MEAN CORPUSCULAR HGB CONC 33 % (32-36); MEAN CORPUSCULAR VOLUME 86 fL (79.0-98.0); MONOCYTES # (AUTO) 0.9 K/uL (0.0-1.0); MONOCYTES % (AUTO) 7.5 % (1.7-9.3); NEUTROPHILS % (AUTO) 63.3 % (40.0-70.0); PLATELET COUNT (AUTO) 357 K/uL (130-430); RED BLOOD CELL COUNT(AUTO) 4.57 MIL/uL (4.2-6.2); RED CELL DISTRIBUTION WIDTH 14.6 % (9.0-15.0); WHITE BLOOD COUNT (AUTO) 12.6 K/uL (4.8-10.8)
[2019-11-04 04:51] LABS: CALCIUM 9.2 mg/dL (8.4-11.0); CREATININE 1.05 mg/dL (0.55-1.30); POTASSIUM 3.6 mmol/L (3.5-5.1)
[2019-11-04 04:56] LABS: ALBUMIN 3.8 g/dL (3.4-4.8); TOTAL BILIRUBIN 0.3 mg/dL (0.0-1.0)
[2019-11-04 05:00] LABS: BILIRUBIN,URINE NEGATIVE (NEGATIVE); BLOOD, URINE 3+ (NEGATIVE); CLARITY/URINE CLEAR (CLEAR); COLOR,URINE YELLOW (YELLOW); GLUCOSE,URINE NEGATIVE (NEGATIVE); KETONES,URINE NEGATIVE (NEGATIVE); LEUKOCYTE ESTERASE ,URINE 1+ (NEGATIVE); NITRITE, URINE NEGATIVE (NEGATIVE); PROTEIN URINE TRACE (NEGATIVE)
[2019-11-04 05:09] LABS: BACTERIA,URINE FEW /HPF (None Seen); CALCIUM OXALATE CRYSTALS,UR 30-50 /HPF (None Seen)
[2019-11-04] MEDS ORDERED: KETOROLAC TROMETHAMINE 30 MG VIAL IVP ONE (05:30)
[2019-11-04] MEDS ORDERED: TAMSULOSIN HCL 0.4 MG CAP PO ONE (06:00)
[2019-11-04] MEDS ORDERED: CIPROFLOXACIN HCL 500 MG TABLET PO ONE (06:00)
[2019-11-04] MEDS ORDERED: TAMSULOSIN HCL 0.4 MG CAP ONE (06:28)
[2019-11-04 06:30] VITALS: BP_SYST 137
== END 2019-11-04 06:30 | disposition home or self-care (01) ==
LOC: SED 03:56
DX: N13.2 Hydronephrosis with renal and ureteral calculous obstruction (principal); N39.0 Urinary tract infection, site not specified; E11.9 Type 2 diabetes mellitus without complications; Z88.8 Allergy status to other drugs, medicaments and biological substances; Z79.899 Other long term (current) drug therapy
CPT/HCPCS: 36415; 74176; 80053; 81000; 85025; 87086; 96374; 96375; 99284; J1885; J2270; J7030